=== PATIENT | female | born 2005 | race Two or more races ===

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

== ENCOUNTER 2023-04-30 13:50 | Emergency (ER) | payer OTHER ==
[~2023-04-30] VITALS: Ht 160 cm; Wt 64.9 kg
[2023-04-30] MEDS ORDERED: KETO10TA2 PO (15:25)
== END 2023-04-30 17:08 | disposition home or self-care (01) ==
LOC: ER 13:50 → EMR PED 13:53
DX: R51.9 Headache, unspecified (principal)

== ENCOUNTER 2023-09-20 17:54 | Emergency (ER) | payer OTHER ==
[~2023-09-20] VITALS: Ht 167.6 cm; Wt 63.5 kg
[~2023-09-20 17:54] MED LIST changes: +KETO10TA2 PO
== END 2023-09-20 22:41 | disposition home or self-care (01) ==
LOC: ER 17:54 → EMR PED 17:58
DX: M25.571 Pain in right ankle and joints of right foot (principal); W18.39XA Other fall on same level, initial encounter; Y93.89 Activity, other specified; Y92.832 Beach as the place of occurrence of the external cause